=== PATIENT | female | born 1975 | race Caucasian/White ===

== ENCOUNTER 2020-10-30 02:08 | Emergency (ER) | payer OTHER ==
[2020-10-30] MEDS ORDERED: PREDNISONE 20MG20 MG PO (03:00)
== END 2020-10-30 03:16 | disposition home or self-care (01) ==
LOC: FER 02:08
DX: T78.40XA Allergy, unspecified, initial encounter (principal); Z88.0 Allergy status to penicillin; Z88.2 Allergy status to sulfonamides; Z88.1 Allergy status to other antibiotic agents
CPT/HCPCS: J7512